=== PATIENT | female | born 1955 | race Caucasian/White ===

== ENCOUNTER 2020-06-20 14:34 | Emergency (ER) | payer OTHER ==
[~2020-06-20] VITALS: Ht 160 cm; Wt 76.7 kg
[2020-06-20] MEDS ORDERED: IBU800 MG PO (14:42)
[2020-06-20 17:09] VITALS: BP 154/88
== END 2020-06-20 17:11 | disposition home or self-care (01) ==
LOC: ER 14:34
DX: S70.11XA Contusion of right thigh, initial encounter (principal); M54.2 Cervicalgia; M54.9 Dorsalgia, unspecified; K21.9 Gastro-esophageal reflux disease without esophagitis; E78.5 Hyperlipidemia, unspecified; G43.909 Migraine, unspecified, not intractable, without status migrainosus; F17.210 Nicotine dependence, cigarettes, uncomplicated; Z86.2 Personal history of diseases of the blood and blood-forming organs and certain disorders involving the immune mechanism; Z79.1 Long term (current) use of non-steroidal anti-inflammatories (NSAID); Z88.5 Allergy status to narcotic agent; Y04.2XXA Assault by strike against or bumped into by another person, initial encounter; Y93.89 Activity, other specified; Y92.89 Other specified places as the place of occurrence of the external cause; Y99.8 Other external cause status

== ENCOUNTER 2020-07-01 00:34 | Emergency (ER) | payer OTHER ==
[~2020-07-01] VITALS: Ht 170.2 cm; Wt 81.7 kg
[~2020-07-01 00:34] MED LIST: IBU800 MG PO
[2020-07-01 00:36] VITALS: BP 170/79
[2020-07-01] MEDS ORDERED: NORCO 10-325 T1 EACH PO (02:20)
[2020-07-01] MEDS ORDERED: TYLENOL #3 (02:20)
[2020-07-01] MEDS ORDERED: FIORINAL CAPSUL1 CA1 (02:20)
== END 2020-07-01 02:00 | disposition home or self-care (01) ==
LOC: ER 00:34
DX: F12.988 Cannabis use, unspecified with other cannabis-induced disorder (principal); L29.8 Other pruritus; F12.929 Cannabis use, unspecified with intoxication, unspecified; K21.9 Gastro-esophageal reflux disease without esophagitis; E78.5 Hyperlipidemia, unspecified; F32.9 Major depressive disorder, single episode, unspecified; F41.9 Anxiety disorder, unspecified; G43.909 Migraine, unspecified, not intractable, without status migrainosus; F17.210 Nicotine dependence, cigarettes, uncomplicated; Z90.711 Acquired absence of uterus with remaining cervical stump; Z79.899 Other long term (current) drug therapy; Z79.82 Long term (current) use of aspirin; Z88.5 Allergy status to narcotic agent

== ENCOUNTER 2020-07-06 17:43 | Emergency (ER) | payer OTHER ==
[~2020-07-06] VITALS: Ht 162.6 cm; Wt 76.7 kg
[~2020-07-06 17:43] MED LIST changes: +FIORINAL CAPSUL1 CA1; +NORCO 10-325 T1 EACH PO; +TYLENOL #3
[2020-07-06 17:44] VITALS: BP 163/74
== END 2020-07-06 18:49 | disposition home or self-care (01) ==
LOC: ER 17:43
DX: B02.9 Zoster without complications (principal); B96.89 Other specified bacterial agents as the cause of diseases classified elsewhere; K21.9 Gastro-esophageal reflux disease without esophagitis; E78.5 Hyperlipidemia, unspecified; G43.909 Migraine, unspecified, not intractable, without status migrainosus; F17.210 Nicotine dependence, cigarettes, uncomplicated; Z90.710 Acquired absence of both cervix and uterus; Z86.2 Personal history of diseases of the blood and blood-forming organs and certain disorders involving the immune mechanism; Z88.5 Allergy status to narcotic agent

== ENCOUNTER 2020-07-27 23:19 | Emergency (ER) | payer OTHER ==
[~2020-07-27] VITALS: Ht 165.1 cm; Wt 75.8 kg
[2020-07-28 01:06] VITALS: BP 142/72
--- NOTE | 2020-07-28 07:23 | EKG ---
[facility] [place] [address] ELECTROCARDIOGRAM REPORT Name: AMILCAR DOUGHERTY Room #: REG [facility]#: [id number] Admission: 07/27/20 Attend Phys: Discharge: Date of : 57 Report #: [id number] THIS REPORT FOR: cc: Steven Phelps MD, Frank W. 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: [facility] : 1955 Requested By: Paramjit Valerio Order Number: [id number] MD: Stephen Rebollar Measurements Intervals [place] Rate: 85 P: 50 AK: 206 QRS: 48 QRSD: 74 T: 27 QT: 376 QTc: 447 Interpretive Statements Sinus rhythm Borderline T wave abnormalities Compared to ECG 09/22/2008 06:59:42 No significant changes Electronically Signed On 07-28-2020 7:23:01 PIT RECORDER by Stephen Rebollar [email or web address] <ELECTRONICALLY SIGNED> By: Stephen Rebollar MD, FACC 07/28/20 0723 [id number] [id number] Stephen Rebollar MD, [facility] /EPI
[2020-07-28] MEDS ORDERED: FLEXERIL PO (12:36)
[2020-07-28] MEDS ORDERED: ZOFRAN ODT4 MG PO (12:38)
[2020-07-28] MEDS ORDERED: IBUPROFEN 800800 MG PO (12:38)
[2020-07-28] MEDS ORDERED: BENADRYL25 MG PO (12:38)
== END 2020-07-28 01:07 | disposition home or self-care (01) ==
LOC: ER 23:19
DX: S20.212A Contusion of left front wall of thorax, initial encounter (principal); S30.0XXA Contusion of lower back and pelvis, initial encounter; K21.9 Gastro-esophageal reflux disease without esophagitis; E78.5 Hyperlipidemia, unspecified; G43.909 Migraine, unspecified, not intractable, without status migrainosus; F17.210 Nicotine dependence, cigarettes, uncomplicated; Z86.2 Personal history of diseases of the blood and blood-forming organs and certain disorders involving the immune mechanism; Z90.710 Acquired absence of both cervix and uterus; W18.39XA Other fall on same level, initial encounter; Y93.89 Activity, other specified; Y92.89 Other specified places as the place of occurrence of the external cause; Y99.8 Other external cause status

== ENCOUNTER 2020-07-28 12:17 | Emergency (ER) | payer OTHER ==
[~2020-07-28] VITALS: Ht 162.6 cm; Wt 74.8 kg
[2020-07-28 12:19] VITALS: BP 120/64
[2020-07-28] MEDS ORDERED: FLEXERIL PO (12:36)
[2020-07-28] MEDS ORDERED: IBUPROFEN 800800 MG PO (12:38)
[2020-07-28] MEDS ORDERED: ZOFRAN ODT4 MG PO (12:38)
[2020-07-28] MEDS ORDERED: BENADRYL25 MG PO (12:38)
== END 2020-07-28 12:57 | disposition home or self-care (01) ==
LOC: ER 12:17
DX: M54.9 Dorsalgia, unspecified (principal); K21.9 Gastro-esophageal reflux disease without esophagitis; E78.5 Hyperlipidemia, unspecified; G43.909 Migraine, unspecified, not intractable, without status migrainosus; G89.29 Other chronic pain; F17.210 Nicotine dependence, cigarettes, uncomplicated; Z90.710 Acquired absence of both cervix and uterus; Z86.2 Personal history of diseases of the blood and blood-forming organs and certain disorders involving the immune mechanism; W22.8XXD Striking against or struck by other objects, subsequent encounter

== ENCOUNTER 2020-07-30 09:57 | Emergency (ER) | payer OTHER ==
[~2020-07-30] VITALS: Ht 165.1 cm; Wt 74.4 kg
[~2020-07-30 09:57] MED LIST changes: +BENADRYL25 MG PO; +FLEXERIL PO; +IBUPROFEN 800800 MG PO; +ZOFRAN ODT4 MG PO
[2020-07-30 12:05] LABS: ABSOLUTE NEUTROPHILS 7.1 thou/uL (1.4-8.2); BASOPHILS 0.2 % (0.0-2.0); EOSINOPHILS 3.8 % (0.0-3.0); HEMATOCRIT 38.3 % (37.0-47.0); HEMOGLOBIN 12.6 gm/dL (12.0-15.0); LYMPHOCYTES 20.6 % (24.0-44.0); MCH 29.9 pg (26.0-34.0); MCHC 32.9 g/dL (28.0-37.0); MCV 90.8 fL (80.0-100.0); MONOCYTES 4.4 % (1.0-8.0); PLATELET COUNT 340 thou/uL (150-400); RBC 4.21 mil/uL (4.20-5.00); RDW 14.7 % (10.5-14.5)
[2020-07-30 12:29] LABS: CREATININE 1.1 mg/dL (0.6-1.0); POTASSIUM 3.8 mmol/L (3.5-5.1)
[2020-07-30 12:38] LABS: ALBUMIN 3.7 g/dL (3.4-5.0); TOTAL BILIRUBIN 0.2 mg/dL (0.2-1.0); TOTAL PROTEIN 7.6 g/dL (6.4-8.2)
[2020-07-30] MEDS ORDERED: TORADOL 10 MG T10 MG PO (13:01)
[2020-07-30 13:21] VITALS: BP 140/74
== END 2020-07-30 13:26 | disposition home or self-care (01) ==
LOC: ER 09:57
PROVIDERS: Physician Assistant
DX: M25.551 Pain in right hip (principal); M25.512 Pain in left shoulder; N64.4 Mastodynia; M54.2 Cervicalgia; M54.5 Low back pain; R10.2 Pelvic and perineal pain; R11.2 Nausea with vomiting, unspecified; K21.9 Gastro-esophageal reflux disease without esophagitis; E78.5 Hyperlipidemia, unspecified; F32.9 Major depressive disorder, single episode, unspecified; F41.9 Anxiety disorder, unspecified; G43.909 Migraine, unspecified, not intractable, without status migrainosus; F17.210 Nicotine dependence, cigarettes, uncomplicated; Z90.710 Acquired absence of both cervix and uterus; Z79.899 Other long term (current) drug therapy; Y04.8XXA Assault by other bodily force, initial encounter; Y93.89 Activity, other specified; Y92.89 Other specified places as the place of occurrence of the external cause; Y99.8 Other external cause status

== ENCOUNTER 2020-08-16 10:32 | Emergency (ER) | payer OTHER ==
[~2020-08-16] VITALS: Ht 165.1 cm; Wt 75.3 kg
[~2020-08-16 10:32] MED LIST changes: +TORADOL 10 MG T10 MG PO
[2020-08-16 10:47] VITALS: BP 152/76
== END 2020-08-16 11:23 | disposition left against medical advice (07) ==
LOC: ER 10:32
DX: R21 Rash and other nonspecific skin eruption (principal); Z53.21 Procedure and treatment not carried out due to patient leaving prior to being seen by health care provider

== ENCOUNTER 2020-09-24 23:19 | Emergency (ER) | payer OTHER ==
[~2020-09-24] VITALS: Ht 165.1 cm; Wt 74.8 kg
[2020-09-24] MEDS ORDERED: NEURONTIN 300M300 M2 PO (23:29)
[2020-09-24] MEDS ORDERED: KLONOPIN0.5 MG PO (23:30)
[2020-09-24] MEDS ORDERED: VISTARIL 25 MG25 M1 PO (23:43)
[2020-09-25 00:13] VITALS: BP 134/64
[2020-09-25] MEDS ORDERED: LIDOCAINE HC28.35 GM TOP (19:44)
== END 2020-09-25 00:15 | disposition home or self-care (01) ==
LOC: ER 23:19
DX: R21 Rash and other nonspecific skin eruption (principal); K21.9 Gastro-esophageal reflux disease without esophagitis; E78.5 Hyperlipidemia, unspecified; G43.909 Migraine, unspecified, not intractable, without status migrainosus; F17.210 Nicotine dependence, cigarettes, uncomplicated; Z90.710 Acquired absence of both cervix and uterus; Z86.2 Personal history of diseases of the blood and blood-forming organs and certain disorders involving the immune mechanism; Z79.1 Long term (current) use of non-steroidal anti-inflammatories (NSAID); Z79.899 Other long term (current) drug therapy; Z88.5 Allergy status to narcotic agent

== ENCOUNTER 2020-09-25 19:07 | Emergency (ER) | payer OTHER ==
[~2020-09-25] VITALS: Ht 165.1 cm; Wt 74.8 kg
[~2020-09-25 19:07] MED LIST changes: +KLONOPIN0.5 MG PO; +NEURONTIN 300M300 M2 PO; +VISTARIL 25 MG25 M1 PO
[2020-09-25] MEDS ORDERED: LIDOCAINE HC28.35 GM TOP (19:44)
[2020-09-25 20:36] VITALS: BP 146/66
== END 2020-09-25 20:00 | disposition home or self-care (01) ==
LOC: ER 19:07
DX: R21 Rash and other nonspecific skin eruption (principal); L29.9 Pruritus, unspecified; K21.9 Gastro-esophageal reflux disease without esophagitis; E78.5 Hyperlipidemia, unspecified; G43.909 Migraine, unspecified, not intractable, without status migrainosus; F17.210 Nicotine dependence, cigarettes, uncomplicated; Z86.2 Personal history of diseases of the blood and blood-forming organs and certain disorders involving the immune mechanism; Z79.899 Other long term (current) drug therapy; Z79.1 Long term (current) use of non-steroidal anti-inflammatories (NSAID); Z88.5 Allergy status to narcotic agent

== ENCOUNTER 2020-10-25 17:06 | Emergency (ER) | payer OTHER ==
[~2020-10-25] VITALS: Ht 165.1 cm; Wt 72.6 kg
[~2020-10-25 17:06] MED LIST changes: +LIDOCAINE HC28.35 GM TOP
[2020-10-25 17:07] VITALS: BP 172/22
[2020-10-25] MEDS ORDERED: VISTARIL 25 MG25 M1 PO (17:21)
== END 2020-10-25 17:41 | disposition home or self-care (01) ==
LOC: ER 17:06
DX: R21 Rash and other nonspecific skin eruption (principal); K21.9 Gastro-esophageal reflux disease without esophagitis; E78.5 Hyperlipidemia, unspecified; G43.909 Migraine, unspecified, not intractable, without status migrainosus; F17.210 Nicotine dependence, cigarettes, uncomplicated; Z76.0 Encounter for issue of repeat prescription; Z90.710 Acquired absence of both cervix and uterus; Z86.2 Personal history of diseases of the blood and blood-forming organs and certain disorders involving the immune mechanism; Z79.1 Long term (current) use of non-steroidal anti-inflammatories (NSAID); Z79.899 Other long term (current) drug therapy; Z88.5 Allergy status to narcotic agent

== ENCOUNTER 2020-12-25 15:46 | Emergency (ER) | payer OTHER ==
[~2020-12-25] VITALS: Ht 165.1 cm; Wt 74.8 kg
[2020-12-25 16:24] LABS: URINE BILIRUBIN NEGATIVE (Negative); URINE BLOOD 2+ (Negative); URINE CLARITY CLEAR; URINE COLOR YELLOW; URINE GLUCOSE-RANDOM* NEGATIVE (Negative); URINE KETONES NEGATIVE (Negative); URINE LEUKOCYTES-REFLEX NEGATIVE (Negative); URINE NITRITE-REFLEX NEGATIVE (Negative); URINE PROTEIN (DIPSTICK) 1+ (Negative); URINE SPECIFIC GRAVITY >= 1.030 (1.005-1.035); URINE UROBILINOGEN 0.2 E.U./dl (0.2-1.0)
[2020-12-25 16:35] LABS: SQUAMOUS >10 Many /LPF (0-3); URINE RBC 3-10 Few /HPF (NONE SEEN); URINE WBC-REFLEX 0-5 Rare /HPF (0-5)
[2020-12-25 16:35] LABS: ABSOLUTE NEUTROPHILS 6.3 thou/uL (1.4-8.2); BASOPHILS 1.2 % (0.0-2.0); HEMATOCRIT 41.5 % (37.0-47.0); HEMOGLOBIN 14.3 gm/dL (12.0-15.0); LYMPHOCYTES 20.3 % (24.0-44.0); MCH 30.8 pg (26.0-34.0); MCHC 34.4 g/dL (28.0-37.0); MCV 89.6 fL (80.0-100.0); MONOCYTES 4.9 % (1.0-8.0); PLATELET COUNT 330 thou/uL (150-400); POLYS 71.6 % (36.0-66.0); RBC 4.63 mil/uL (4.20-5.00); WBC 8.8 thou/uL (4.0-11.0)
[2020-12-25 16:36] LABS: CASTS None Seen /LPF (None Seen); CRYSTALS None Seen /LPF (None Seen)
[2020-12-25 16:49] LABS: CALCIUM 9.3 mg/dL (8.5-10.1); POTASSIUM 3.6 mmol/L (3.5-5.1)
[2020-12-25 17:30] VITALS: BP 150/72
== END 2020-12-25 17:30 | disposition home or self-care (01) ==
LOC: ER 15:46
PROVIDERS: Nurse Practitioner
DX: R19.7 Diarrhea, unspecified (principal); Z20.822 Contact with and (suspected) exposure to COVID-19; E86.0 Dehydration; R30.0 Dysuria; K21.9 Gastro-esophageal reflux disease without esophagitis; E78.5 Hyperlipidemia, unspecified; F32.9 Major depressive disorder, single episode, unspecified; F41.9 Anxiety disorder, unspecified; G43.909 Migraine, unspecified, not intractable, without status migrainosus; F17.210 Nicotine dependence, cigarettes, uncomplicated; Z90.711 Acquired absence of uterus with remaining cervical stump; Z79.899 Other long term (current) drug therapy; Z88.5 Allergy status to narcotic agent

== ENCOUNTER 2021-02-10 14:07 | Emergency (ER) | payer OTHER ==
[~2021-02-10] VITALS: Ht 165.1 cm; Wt 79.4 kg
[2021-02-10] MEDS ORDERED: CLONAZEPAM 0.50.5 M1 PO (14:26)
[2021-02-10] MEDS ORDERED: BUTALB-APAP-CA1 EACH PO (14:26)
[2021-02-10 15:33] LABS: ABSOLUTE NEUTROPHILS 7.6 thou/uL (1.4-8.2); BASOPHILS 0.3 % (0.0-2.0); EOSINOPHILS 1.5 % (0.0-3.0); HEMATOCRIT 37.7 % (37.0-47.0); HEMOGLOBIN 12.6 gm/dL (12.0-15.0); LYMPHOCYTES 13.7 % (24.0-44.0); MCH 30.1 pg (26.0-34.0); MCHC 33.5 g/dL (28.0-37.0); MCV 90.1 fL (80.0-100.0); MONOCYTES 5.4 % (1.0-8.0); PLATELET COUNT 285 thou/uL (150-400); POLYS 79.1 % (36.0-66.0); RBC 4.19 mil/uL (4.20-5.00); RDW 14.4 % (10.5-14.5); WBC 9.7 thou/uL (4.0-11.0)
[2021-02-10 15:43] LABS: ANION GAP 5 mmol/L (7-16); BUN 15 mg/dL (7-18); CALCIUM 8.6 mg/dL (8.5-10.1); CHLORIDE 107 mmol/L (98-107); CO2 27 mmol/L (21-32); CREATININE 0.9 mg/dL (0.6-1.0); GLUCOSE 105 mg/dL (74-106); POTASSIUM 3.4 mmol/L (3.5-5.1); SODIUM 139 mmol/L (136-145)
[2021-02-10 15:53] LABS: ALBUMIN 3.6 g/dL (3.4-5.0); SGOT 17 U/L (15-37); SGPT 20 U/L (14-59); TOTAL BILIRUBIN 0.3 mg/dL (0.2-1.0); TOTAL PROTEIN 7.3 g/dL (6.4-8.2); TROPONIN-I <0.06 ng/mL (<0.06)
[2021-02-10 16:01] LABS: INR 0.99; PROTIME 10.8 Seconds (10.5-12.1)
[2021-02-10 16:12] LABS: URINE BILIRUBIN NEGATIVE (Negative); URINE BLOOD 3+ (Negative); URINE CLARITY CLEAR; URINE COLOR YELLOW; URINE GLUCOSE-RANDOM* NEGATIVE (Negative); URINE KETONES 1+ (Negative); URINE NITRITE-REFLEX NEGATIVE (Negative); URINE PROTEIN (DIPSTICK) TRACE (Negative); URINE SPECIFIC GRAVITY >= 1.030 (1.005-1.035); URINE UROBILINOGEN 0.2 E.U./dl (0.2-1.0)
[2021-02-10 16:15] LABS: URINE LEUKOCYTES-REFLEX 1+ (Negative)
[2021-02-10 16:19] LABS: CASTS None Seen /LPF (None Seen); SQUAMOUS 4-10 Moderate /LPF (0-3)
[2021-02-10 16:20] LABS: BACTERIA-REFLEX 1-9 Few /HPF (None Seen); CRYSTALS None Seen /LPF (None Seen)
[2021-02-10] MEDS ORDERED: CEPHALEXIN500 MG PO (16:32)
[2021-02-10 16:37] VITALS: BP 133/68
--- NOTE | 2021-02-11 07:18 | EKG ---
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 : 1955 Requested By: Derian Milton Order Number: [id number] MD: Stephen Rebollar Measurements Intervals [place] Rate: 79 P: 40 SC: 194 QRS: 23 QRSD: 69 T: 32 QT: 450 QTc: 517 Interpretive Statements Sinus rhythm Borderline T wave abnormalities Prolonged QT interval Compared to ECG 07/27/2020 23:33:24 Prolonged QT interval now present T-wave abnormality still present Electronically Signed On 02-11-2021 7:18:34 CDT by Stephen Rebollar [email or web address] <ELECTRONICALLY SIGNED> By: Stephen Rebollar MD, [facility] 02/11/21 0718 1504 1504 Stephen Rebollar MD, FAC /EPI
== END 2021-02-10 16:45 | disposition home or self-care (01) ==
LOC: ER 14:07
PROVIDERS: Emergency Medicine
DX: N39.0 Urinary tract infection, site not specified (principal); H57.12 Ocular pain, left eye; R07.89 Other chest pain; K21.9 Gastro-esophageal reflux disease without esophagitis; E78.5 Hyperlipidemia, unspecified; G43.909 Migraine, unspecified, not intractable, without status migrainosus; G89.29 Other chronic pain; F17.210 Nicotine dependence, cigarettes, uncomplicated; Z86.2 Personal history of diseases of the blood and blood-forming organs and certain disorders involving the immune mechanism; Z90.710 Acquired absence of both cervix and uterus; Z88.5 Allergy status to narcotic agent

== ENCOUNTER 2021-02-24 10:58 | Emergency (ER) | payer OTHER ==
[~2021-02-24] VITALS: Ht 165.1 cm; Wt 77.1 kg
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
[~2021-02-24 10:58] MED LIST changes: +BUTALB-APAP-CA1 EACH PO; +CEPHALEXIN500 MG PO; +CLONAZEPAM 0.50.5 M1 PO
[2021-02-24 11:28] LABS: URINE BILIRUBIN NEGATIVE (Negative); URINE BLOOD 3+ (Negative); URINE CLARITY CLEAR; URINE COLOR YELLOW; URINE GLUCOSE-RANDOM* NEGATIVE (Negative); URINE KETONES NEGATIVE (Negative); URINE LEUKOCYTES-REFLEX NEGATIVE (Negative); URINE NITRITE-REFLEX NEGATIVE (Negative); URINE PROTEIN (DIPSTICK) TRACE (Negative); URINE SPECIFIC GRAVITY 1.025 (1.005-1.035); URINE UROBILINOGEN 0.2 E.U./dl (0.2-1.0)
[2021-02-24 11:53] LABS: CASTS None Seen /LPF (None Seen); CRYSTALS None Seen /LPF (None Seen); SQUAMOUS >10 Many /LPF (0-3); URINE RBC 3-10 Few /HPF (NONE SEEN); URINE WBC-REFLEX 0-5 Rare /HPF (0-5)
[2021-02-24 11:56] LABS: ABSOLUTE NEUTROPHILS 6.5 thou/uL (1.4-8.2); BASOPHILS 0.9 % (0.0-2.0); EOSINOPHILS 1.6 % (0.0-3.0); HEMATOCRIT 39.3 % (37.0-47.0); HEMOGLOBIN 13.3 gm/dL (12.0-15.0); MCH 30.7 pg (26.0-34.0); MCHC 33.9 g/dL (28.0-37.0); MCV 90.4 fL (80.0-100.0); MONOCYTES 5.1 % (1.0-8.0); PLATELET COUNT 276 thou/uL (150-400); POLYS 75.4 % (36.0-66.0); RBC 4.35 mil/uL (4.20-5.00); RDW 14.4 % (10.5-14.5); WBC 8.7 thou/uL (4.0-11.0)
[2021-02-24 12:04] LABS: CALCIUM 8.7 mg/dL (8.5-10.1); CREATININE 0.9 mg/dL (0.6-1.0); POTASSIUM 3.5 mmol/L (3.5-5.1)
[2021-02-24 12:10] LABS: ALBUMIN 3.8 g/dL (3.4-5.0); TOTAL BILIRUBIN 0.3 mg/dL (0.2-1.0); TOTAL PROTEIN 7.7 g/dL (6.4-8.2)
[2021-02-24 13:01] VITALS: BP 168/72
[2021-02-25] MEDS ORDERED: MUPIROCIN15 GM TOP (01:18)
== END 2021-02-24 13:01 | disposition home or self-care (01) ==
LOC: ER 10:58
PROVIDERS: Nurse Practitioner
DX: G89.29 Other chronic pain (principal); K08.89 Other specified disorders of teeth and supporting structures; R11.2 Nausea with vomiting, unspecified; R19.7 Diarrhea, unspecified; K21.9 Gastro-esophageal reflux disease without esophagitis; E78.5 Hyperlipidemia, unspecified; F32.9 Major depressive disorder, single episode, unspecified; F41.9 Anxiety disorder, unspecified; G43.909 Migraine, unspecified, not intractable, without status migrainosus; F17.210 Nicotine dependence, cigarettes, uncomplicated; Z90.711 Acquired absence of uterus with remaining cervical stump; Z79.2 Long term (current) use of antibiotics; Z79.899 Other long term (current) drug therapy; Z88.5 Allergy status to narcotic agent

== ENCOUNTER 2021-02-25 00:57 | Emergency (ER) | payer OTHER ==
[~2021-02-25] VITALS: Ht 165.1 cm; Wt 77.1 kg
[2021-02-25 01:01] VITALS: BP 157/73
[2021-02-25] MEDS ORDERED: MUPIROCIN15 GM TOP (01:18)
== END 2021-02-25 01:28 | disposition left against medical advice (07) ==
LOC: ER 00:57
DX: M79.604 Pain in right leg (principal); M79.605 Pain in left leg; Z53.21 Procedure and treatment not carried out due to patient leaving prior to being seen by health care provider

== ENCOUNTER 2021-03-10 00:16 | Emergency (ER) | payer OTHER ==
[~2021-03-10 00:16] MED LIST changes: +MUPIROCIN15 GM TOP
[2021-03-10] MEDS ORDERED: OXYCODONE-APAP1 EAC4 PO (10:39)
== END 2021-03-10 00:32 | disposition left against medical advice (07) ==
LOC: ER 00:16
DX: Z53.21 Procedure and treatment not carried out due to patient leaving prior to being seen by health care provider (principal)

== ENCOUNTER 2021-03-10 10:30 | Emergency (ER) | payer OTHER ==
[~2021-03-10] VITALS: Ht 165.1 cm; Wt 77.1 kg
[2021-03-10 10:34] VITALS: BP 133/63
[2021-03-10] MEDS ORDERED: OXYCODONE-APAP1 EAC4 PO (10:39)
[2021-03-10 12:42] LABS: URINE BILIRUBIN NEGATIVE (Negative); URINE BLOOD 3+ (Negative); URINE CLARITY CLEAR; URINE COLOR YELLOW; URINE GLUCOSE-RANDOM* NEGATIVE (Negative); URINE KETONES NEGATIVE (Negative); URINE LEUKOCYTES-REFLEX NEGATIVE (Negative); URINE NITRITE-REFLEX NEGATIVE (Negative); URINE PROTEIN (DIPSTICK) NEGATIVE (Negative); URINE SPECIFIC GRAVITY >= 1.030 (1.005-1.035); URINE UROBILINOGEN 0.2 E.U./dl (0.2-1.0)
[2021-03-10 13:05] LABS: CASTS None Seen /LPF (None Seen); CRYSTALS None Seen /LPF (None Seen); SQUAMOUS 4-10 Moderate /LPF (0-3); URINE RBC 3-10 Few /HPF (NONE SEEN); URINE WBC-REFLEX 0-5 Rare /HPF (0-5)
[2021-03-10 13:06] LABS: BACTERIA-REFLEX 1-9 Few /HPF (None Seen)
== END 2021-03-10 13:04 ==
LOC: ER 10:30
PROVIDERS: Nurse Practitioner Family
DX: G89.29 Other chronic pain (principal); F17.210 Nicotine dependence, cigarettes, uncomplicated; K21.9 Gastro-esophageal reflux disease without esophagitis; E78.5 Hyperlipidemia, unspecified; G43.909 Migraine, unspecified, not intractable, without status migrainosus; Z65.8 Other specified problems related to psychosocial circumstances; Z90.710 Acquired absence of both cervix and uterus; Z86.2 Personal history of diseases of the blood and blood-forming organs and certain disorders involving the immune mechanism

== ENCOUNTER 2021-03-30 22:14 | Emergency (ER) | payer OTHER ==
[~2021-03-30] VITALS: Ht 165.1 cm; Wt 72.6 kg
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
[~2021-03-30 22:14] MED LIST changes: +OXYCODONE-APAP1 EAC4 PO
[2021-03-30 22:43] LABS: URINE BILIRUBIN NEGATIVE (Negative); URINE BLOOD 2+ (Negative); URINE CLARITY CLEAR; URINE COLOR YELLOW; URINE GLUCOSE-RANDOM* NEGATIVE (Negative); URINE KETONES NEGATIVE (Negative); URINE LEUKOCYTES-REFLEX NEGATIVE (Negative); URINE NITRITE-REFLEX NEGATIVE (Negative); URINE PROTEIN (DIPSTICK) TRACE (Negative); URINE SPECIFIC GRAVITY >= 1.030 (1.005-1.035); URINE UROBILINOGEN 0.2 E.U./dl (0.2-1.0)
[2021-03-30] MEDS ORDERED: AMOXIL 875 MG875 M2 PO (22:59)
[2021-03-30 23:25] LABS: BACTERIA-REFLEX 1-9 Few /HPF (None Seen); CRYSTALS None Seen /LPF (None Seen); HYALINE CASTS 0-3 Few /LPF (None Seen); MUCUS 0-3 Light strn/LPF (None Seen); SQUAMOUS >10 Many /LPF (0-3); URINE WBC-REFLEX 0-5 Rare /HPF (0-5)
[2021-03-30 23:32] VITALS: BP 117/77
== END 2021-03-31 03:24 | disposition home or self-care (01) ==
LOC: ER 22:14
PROVIDERS: Nurse Practitioner Family
DX: U07.1 COVID-19 (principal); J12.82 Pneumonia due to coronavirus disease 2019; K21.9 Gastro-esophageal reflux disease without esophagitis; E78.5 Hyperlipidemia, unspecified; F32.9 Major depressive disorder, single episode, unspecified; F41.9 Anxiety disorder, unspecified; F17.210 Nicotine dependence, cigarettes, uncomplicated; Z90.711 Acquired absence of uterus with remaining cervical stump; Z98.890 Other specified postprocedural states; Z79.1 Long term (current) use of non-steroidal anti-inflammatories (NSAID); Z79.891 Long term (current) use of opiate analgesic; Z79.899 Other long term (current) drug therapy

== ENCOUNTER → 2021-04-01 | Emergency (ER) | payer OTHER ==
[~2021-04-01] MED LIST changes: +AMOXIL 875 MG875 M2 PO
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
[2021-04-01 05:16] VITALS: BP 132/40
== END ==
LOC: ER 05:03
DX: G89.29 Other chronic pain (principal); M79.672 Pain in left foot; M79.671 Pain in right foot; K21.9 Gastro-esophageal reflux disease without esophagitis; E78.5 Hyperlipidemia, unspecified; F32.9 Major depressive disorder, single episode, unspecified; F41.9 Anxiety disorder, unspecified; F17.210 Nicotine dependence, cigarettes, uncomplicated; G43.909 Migraine, unspecified, not intractable, without status migrainosus; Z90.711 Acquired absence of uterus with remaining cervical stump; Z79.899 Other long term (current) drug therapy

== ENCOUNTER 2021-04-05 00:30 | Emergency (ER) | payer OTHER ==
[~2021-04-05] VITALS: Ht 165.1 cm; Wt 72.6 kg
[2021-04-05 01:18] VITALS: BP 140/80
== END 2021-04-05 01:18 | disposition home or self-care (01) ==
LOC: ER 00:30
DX: G43.909 Migraine, unspecified, not intractable, without status migrainosus (principal); L29.8 Other pruritus; K21.9 Gastro-esophageal reflux disease without esophagitis; E78.5 Hyperlipidemia, unspecified; F32.9 Major depressive disorder, single episode, unspecified; F41.9 Anxiety disorder, unspecified; F17.210 Nicotine dependence, cigarettes, uncomplicated; F12.90 Cannabis use, unspecified, uncomplicated; Z90.711 Acquired absence of uterus with remaining cervical stump; Z98.890 Other specified postprocedural states; Z79.1 Long term (current) use of non-steroidal anti-inflammatories (NSAID); Z79.899 Other long term (current) drug therapy; Z79.891 Long term (current) use of opiate analgesic

== ENCOUNTER 2021-04-10 03:15 | Emergency (ER) | payer OTHER ==
[~2021-04-10] VITALS: Ht 167.6 cm; Wt 86.2 kg
[2021-04-10 03:27] VITALS: BP 141/82
[2021-04-10] MEDS ORDERED: HYDROXYZINE HCL25 M2 PO (03:32)
== END 2021-04-10 04:09 | disposition home or self-care (01) ==
LOC: ER 03:15
DX: R21 Rash and other nonspecific skin eruption (principal); K21.9 Gastro-esophageal reflux disease without esophagitis; E78.5 Hyperlipidemia, unspecified; F32.9 Major depressive disorder, single episode, unspecified; F41.9 Anxiety disorder, unspecified; F17.210 Nicotine dependence, cigarettes, uncomplicated; Z90.711 Acquired absence of uterus with remaining cervical stump; Z79.899 Other long term (current) drug therapy

== ENCOUNTER → 2021-04-25 | Emergency (ER) | payer OTHER ==
[~2021-04-25] MED LIST changes: +HYDROXYZINE HCL25 M2 PO
== END ==
LOC: ER 22:38
DX: G43.909 Migraine, unspecified, not intractable, without status migrainosus (principal); Z53.21 Procedure and treatment not carried out due to patient leaving prior to being seen by health care provider

== ENCOUNTER 2021-04-26 04:28 | Emergency (ER) | payer OTHER ==
[~2021-04-26] VITALS: Ht 165.1 cm; Wt 68.0 kg
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
[2021-04-26 04:29] VITALS: BP 148/89
== END 2021-04-26 04:45 ==
LOC: ER 04:28
DX: Z76.89 Persons encountering health services in other specified circumstances (principal); K21.9 Gastro-esophageal reflux disease without esophagitis; E78.5 Hyperlipidemia, unspecified; F32.9 Major depressive disorder, single episode, unspecified; F41.9 Anxiety disorder, unspecified; G43.909 Migraine, unspecified, not intractable, without status migrainosus; Z90.711 Acquired absence of uterus with remaining cervical stump; Z79.899 Other long term (current) drug therapy; Z87.891 Personal history of nicotine dependence